=== PATIENT | female | born 1945 | race Caucasian/White ===

== ENCOUNTER 2025-05-25 09:34 | Emergency (ER) | payer MEDICARE, OTHER, SELFPAY ==
[2025-05-25 09:43] VITALS: BP 162/112
[2025-05-25 11:54] VITALS: BP 187/78; BMI 32.3
[2025-05-25] MEDS: NSS 1000 IV (12:04)
[2025-05-25 12:22] LABS: Hematocrit 38.0 % (37.0-47.0); Hemoglobin 12.5 g/dL (12.0-16.0); Mean Corp Hgb Conc. 32.9 g/dL (33.0-37.0); Mean Corpuscular Volume 81.4 fL (81.0-99.0); Nucleated Red Blood Cells % 0 %; Platelet Count 200 10^3/uL (130-400); Red Cell Dist. Width 14.6 % (11.5-14.5)
[2025-05-25] MEDS: OFIRMEV 100 IV (12:24)
[2025-05-25 13:05] LABS: ALT (SGPT) 12 U/L (0-35); AST (SGOT) 18 U/L (14-36); Albumin 4.4 g/dl (3.5-5.0); Alkaline Phosphatase 81 U/L (38-126); Blood Urea Nitrogen 14 mg/dl (7-17); Calcium 9.7 mg/dl (8.4-10.2); Carbon Dioxide 26 mmol/L (22-30); Chloride 108 mmol/L (98-107); Estimated Creatinine Clearance 65 ml/min; Glucose 97 mg/dl (70-99); Potassium 3.8 mmol/L (3.5-5.1); Sodium 140 mmol/L (135-145); Total Protein 7.1 g/dl (6.3-8.2); eGFR > 60.00
--- NOTE | 2025-05-25 13:26 | ED.GENMED ---
History of Present Illness
General
Chief Complaint: Fall
Source: patient
Exam Limitations: none
Time Seen by Provider: 05/25/25 10:53
Nursing documentation reviewed up to this point in time: agreed with
History of Present Illness
History of Present Illness:
80-year-old female past ministry of hypertension presenting to the emergency department today after a fall down 6 steps 4 days ago hitting the back of her head ongoing headache light sensitivity but also discomfort throughout the low back and low
abdomen. Has been able to have bowel movements and urination. No blood in the urine. No chest pain or shortness of breath. No extremity discomfort.
Review of Systems
Review of Systems
Allergies reviewed?: Yes
All Other Systems: ROS reviewed and negative except as documented in HPI and ROS
Phy Exam
Physical Exam
Physical Exam:
GENERAL: Alert , in no apparent distress
EYE: pupils equal and reactive
NECK: Supple, no significant adenopathy.
ENT: o/p clr, mmm.
CARDIAC: Regular rate and rhythm .
LUNGS: Clear breath sounds bilaterally, no acute respiratory distress, no wheezes/rales/rhonchi
ABDOMEN: Tenderness palpation throughout the lower abdomen and low back no overlying skin changes.
NEUROLOGICAL: Alert and oriented, no focal neuro deficits
SKIN: Warm and dry, skin intact.
MUSCULOSKELETAL: No edema, well perfused.
PSYCH: Normal and appropriate interaction.
Course
Orders/Labs/Results
Orders:
Orders
05/25/25 09:47
CT Cervical Spine W/o Iv Contr Urgent
Comment:
Reason For Exam: pain after fall down 6-[address] Head W/o Iv Contrast Urgent
Comment:
Reason For Exam: pain after fall down 6-7 steps
05/25/25 12:01
CT Abd/Pel (IV only)-DH only Urgent
Comment:
Reason For Exam: low back low abd pain after fall
05/25/25 12:02
0.9% Sodium Chloride 1000 ml [Nss] 1,000 ml IV BOLUS
05/25/25 12:09
CBC/With Diff [Complete Blood Count/With Diff] Urgent
CMP [Comprehensive Metabolic Panel] Urgent
05/25/25 12:20
Acetaminophen 1000MG/100Ml [Ofirmev] 1,000 mg in 100 ml IV ONCE
Acetaminophen IV Indication:: No GA & No Enteral Access
05/25/25 14:17
Urinalysis Reflex To Culture Urgent
Date Specimen was Collected: 05/25/25
Time Specimen was Collected: 14:16
Abnormal Lab Results
05/25/25
12:09
MCH 26.8 L pg
(27.0-31.0)
MCHC 32.9 L g/dL
(33.0-37.0)
RDW 14.6 H %
(11.5-14.5)
Chloride 108 H mmol/L
(98-107)
05/25/25 12:09
05/25/25 12:09
Vital Signs
Initial and Last Documented VS:
Initial Vital Signs
Temp Pulse Resp BP Pulse Ox
98.2 F 78 18 162/112 96
05/25/25 09:43 05/25/25 09:43 05/25/25 09:43 05/25/25 09:43 05/25/25 09:43
Last Documented Vital Signs
Temp Pulse Resp BP Pulse Ox
98.2 F 64 16 187/78 95
05/25/25 09:43 05/25/25 11:54 05/25/25 11:54 05/25/25 11:54 05/25/25 13:27
MDM/Problems Addressed
MDM/Problems Addressed:
80-year-old female presenting to the emergency department today with concerns of low back and low abdominal pain after a fall few days ago. Also with some head pain neck pain. Head CT and neck CT without emergent abnormalities. Patient did have
discomfort on palpation CT scan was obtained that showed L1 mild acute endplate compression. This was explained to the patient she was advised for close outpatient follow-up with the back doctor. Otherwise return precautions given.
*Pulse Oximetry
SaO2: 95
Oxygen Mode of Delivery: Room air
Patient hypoxic: no (95)
*Critical Care Note
Total Time (30-74mins, 75-104mins- exclusive of procedures): Not Applicable
ED Attending Note
-
Portions of this chart may have been created with voice recognition software.� Occasional wrong word or��sound alike� substitutions may have occurred due to the inherent limitations of voice recognition software.
Discharge Plan
Departure
Patient Disposition: Home (Routine Discharge)
Date of Disposition: 05/25/25
Time of Disposition: 14:59
Patient with high blood pressure during this ER visit?: No
Condition: Good
Discharge Problem:
Compression fx, lumbar spine, Concussion
Instructions: Vertebral compression fracture, Concussion, Adult (DC)
Referrals:
Samuel Khan DO [Family Provider, Family Practice]
Sidra Henson MD [Active, Neurosurgery] - Follow up in 5-7 days
Activity Restrictions/Additional Instructions:
You came to the emergency department today after a fall. You may have a concussion. Otherwise your head CT and neck CT were normal. Please rest over the next few days and slowly increase activity over the next few days to help with symptoms.
Additionally had a CT scan that showed an L1 compression fracture. Please follow-up closely with the back doctor to be fitted for a brace and also be referred to PT. Return for any worsening, new or concerning symptoms.
Interventions
Interventions:
*Risk Screen - Suicide Last Done: 05/25/25 09:43
ED-Musculoskeletal Assessment Last Done: 05/25/25 12:17
ED- Neurological Assessment Last Done: 05/25/25 11:55
ED-Skin Assessment Last Done: 05/25/25 12:17
Discharge Date and Time
Print Language: MALTESE
[2025-05-25 14:47] LABS: Urine Character Clear (Clear)
== END 2025-05-25 15:19 | disposition home or self-care (01) ==
LOC: EMR 09:34
PROVIDERS: Physician Assistant; EMERGENCY PHYSICIAN Student in an Organized Health Care Education/Training Program; FAMILY PHYSICIAN Family Medicine
DX: S32.019A Unspecified fracture of first lumbar vertebra, initial encounter for closed fracture (principal); S06.0X0A Concussion without loss of consciousness, initial encounter; G44.309 Post-traumatic headache, unspecified, not intractable; M54.2 Cervicalgia; W10.9XXA Fall (on) (from) unspecified stairs and steps, initial encounter; I10 Essential (primary) hypertension; F41.9 Anxiety disorder, unspecified; F32.A Depression, unspecified; M79.7 Fibromyalgia; Z96.653 Presence of artificial knee joint, bilateral
CPT/HCPCS: 99284; 96361 ×3; 96374; 70450; 72125; 74177; 80053; 81003; 85025; Q9967